=== PATIENT | male | born 1945 | race Caucasian/White ===

== ENCOUNTER → 2016-10-05 | Outpatient (CLI) | payer OTHER | LOC: CAT 11:03 | DX: J43.9 Emphysema, unspecified (principal); N20.0 Calculus of kidney; N28.1 Cyst of kidney, acquired; R91.1 Solitary pulmonary nodule ==

== ENCOUNTER 2017-02-26 17:58 | Inpatient (IN) | payer OTHER ==
[~2017-02-26] VITALS: Ht 180.3 cm; Wt 73.5 kg
--- NOTE | ~2017-02-26 | HC ---
[facility] [place] [address] CONSULTATION Name: GE HAWTHORNE Room #: 356-P [facility] IN M.R.#: [id number] Admission: 02/26/17 Attend Phys: Alexey Murcia DO Discharge: 03/01/17 Date of : 47 Report #: [id number] THIS REPORT FOR: //name// CC: DAVID physician/PCP Alexey Murcia DATE OF SERVICE: 02/26/2017 HISTORY OF PRESENT ILLNESS: This is a 71-year-old male patient who was evaluated by me for the weakness of the right lower extremity. It started 3 days ago. It fluctuated some, but now for more than 24 hours, he is paralyzed in the right lower extremity. He does have some deficit in the right upper extremity also. The weakness is severe. It came spontaneously without any trauma and there is no aggravating or relieving factors for this. REVIEW OF SYSTEMS: Indicate he is a smoker and he has COPD. He follows up with Pulmonary for that. He was able to carry out the activities of daily living but only with a lot of effort. He does not believe that he has any anxiety. He did have some lower back pain but I do not know whether that has any relationship to the patient's symptoms. He denies any eye, ENT, cardiac, respiratory, GI, , constitutional, dermatological, hematological, psychiatric, throat and allergic symptom associated with present symptomatology. He did have some burn in the left leg. PAST MEDICAL HISTORY: Negative for stroke, the best I can understand. FAMILY HISTORY: Negative for early age stroke. SOCIAL HISTORY: He smokes, but he states he does not drink any alcohol. PHYSICAL EXAMINATION: NEUROLOGICAL: Indicate that he is alert, responsive, able to follow simple and complex command. His speech, concentration, fund of knowledge and memory is at his baseline. His cranial nerve examination 2 through 12 is unremarkable. He is weaker in the right hand as compared to the left hand but right leg, he does not move at all. His reflexes look symmetrical. His tone looks symmetrical. He is able to appreciate the position sense on both sides. I do not think he has much cerebellar signs. NECK: There is no carotid bruit or papilledema. He has no thyroid mass or any carotid bruit. GENERAL: He is a well-developed individual who does not have any dysmorphic features of eyes, ears and face. HEENT: His hearing and vision looks adequate. EXTREMITIES: He has no edema, cyanosis or jaundice. His pulses are palpable. CARDIAC: Examination shows normal heart sounds and he has no murmur [place] [address] CONSULTATION Name: GE HATWHORNE Room #: 356-P [facility] IN M.R.#: [id number] Admission: 02/26/17 Attend Phys: Alexey Murcia DO Discharge: 03/01/17 Date of : 47 Report #: [id number] LUNGS: No respiratory difficulty or rhonchi were noticed. VITAL SIGNS: His blood pressure is 142/82, respirations 17, pulse is 74 and temperature is 97.7. LABORATORY DATA: His white count was normal. He did have a CT scan of the head, which was unremarkable and does not look like it showed any CVA. IMPRESSION: It is a pretty unusual symptom but this patient's symptoms can be consistent with anterior cerebral artery infarct with leg is predominantly affected. Usually some sensory loss is present but that is not present in this patient. He needs further workup, especially with his history of smoking. I suggested an MRI of the brain. If MRI of the brain demonstrated that he has an anterior cerebral artery stroke and I do not believe that we need to do much. If not, then he needs a full spine workup even if the weakness is unilateral. He does have some history of anxiety but he does not feel anxious at the moment according to him. RECOMMENDATIONS: 1. MRI of the brain. 2. If MRI of the brain showed anterior cerebral artery infarct, then we can start treating them. 3. If he does not have any anterior cerebral artery infarct, then I think we need further workup of the spine, all of it was discussed with the patient in great detail and he wants to follow this plan. Thank you very much for this referral and if you have any questions, please feel free to contact me. <ELECTRONICALLY SIGNED> By: Celestino Coleman MD 03/03/17 0731 [id number] Celestino Coleman MD /nt
--- NOTE | ~2017-02-26 | EKG ---
[place] [address] [facility] [place] [address] ELECTROCARDIOGRAM REPORT Name: GE HAWTHORNE Room #: 356-P ADM IN M.R.#: [id number] Admission: 02/26/17 Attend Phys: Alexey Murcia DO Discharge: Date of : 47 Report #: [id number] THIS REPORT FOR: //name// [facility] ED Test Date: 2017-02-26 Test Time: 20:30:40 Pat Name: GE HAWTHORNE Department: Room: 356 Gender: M Independent Film Maker: MZOOK : 1945 Requested By: Narayan Ortega Order Number: [id number] MD: Brodie Garcia Measurements Intervals [place] Rate: 68 P: 70 [place]: 158 QRS: 27 QRSD: 117 T: 52 QT: 404 QTc: 430 Interpretive Statements Sinus rhythm LAD, consider left anterior fascicular block Low voltage, extremity leads No previous ECG available for comparison Electronically Signed On 02-26-2017 23:07:46 HEALTH SCIENCES MANAGER by Brodie Garcia [email or web address] <ELECTRONICALLY SIGNED> By: Brodie Garcia MD 02/26/17 2307 2030 2030 Brodie Garcia MD /[facility]
--- NOTE | ~2017-02-26 | 2DMMODE ---
[facility] [address] [place] [address] 2 D/M-MODE ECHOCARDIOGRAM Name: GE HAWTHORNE Room #: 356-P ADM IN M.R.#: [id number] Admission: 02/26/17 Attend Phys: Alexey Murcia, Discharge: Date of : 47 Date of Service: 03/01/17 1106 Report #: [id number] THIS REPORT FOR: //name// APPROVED REPORT Study performed: 03/01/2017 08:59:08 EXAM: Comprehensive 2D, Doppler, and color-flow Echocardiogram Patient Location: Bedside Room #: 356 Status: routine BSA: 1.93 HR: 74 bpm BP: 148/81 mmHg Other Information Study Quality: Technically Limited Technically limited study due to severe lung disease. Some images and doppler not taken due due to inability to achieve accurate angle and image quality.. Indications COPD CVA/TIA 2D Dimensions LVEF(%): 60.68 (>50%) IVSd: 10.23 (7-11mm) LVOT Diam: 21.11 (18-24mm) LVDd: 45.97 mm PWd: 9.03 (7-11mm) LVDs: 31.10 (25-40mm) Aortic Root: 34.79 mm IVC: 22.00 mm Gaitan's LVEF: 60.68 % Pulmonary Valve PV Peak Caleb.: 0.97 m/s PV Peak Gr.: 3.80 mmHg Tricuspid Valve RAP Estimate: 10.00 mmHg Left Ventricle The left ventricle is normal size. There is normal left ventricular wall thickness. The left ventricular systolic function is normal. The left ventricular ejection fraction is within the normal range. LVEF is 60-65%. This study is not technically sufficient to allow [facility] [address] [place] [address] 2 D/M-MODE ECHOCARDIOGRAM Name: GE HAWTHORNE Room #: 356-P ADM IN .R.#: [id number] Admission: 02/26/17 Attend Phys: Alexey Murcia, Discharge: Date of : 47 Date of Service: 03/01/17 1106 Report #: [id number] evaluation of the LV diastolic function. Right Ventricle The right ventricular systolic function is normal. Aortic Valve The aortic valve appears grossly normal in structure. Mitral Valve The mitral valve is normal in structure. Tricuspid Valve The tricuspid valve is normal in structure. Trace tricuspid regurgitation. Pulmonic Valve Pulmonic valve is not well visualized. Great Vessels The aortic root is normal in size. IVC is dilated and collapses >50% with inspiration. Pericardium There is no pericardial effusion. <Conclusion> The left ventricle is normal size. LVEF is 60-65%. The aortic valve appears grossly normal in structure. The mitral valve is normal in structure. The tricuspid valve is normal in structure. Trace tricuspid regurgitation. Pulmonic valve is not well visualized. There is no pericardial effusion. <ELECTRONICALLY SIGNED> By: Familia Roman MD 03/01/17 1106 1106 1106 Familia Roman MD /INF
--- NOTE | ~2017-02-26 | HC ---
[facility] [place] [address] CONSULTATION Name: GE HAWTHORNE Room #: 356-P [facility] IN M.R.#: [id number] Admission: 02/26/17 Attend Phys: Alexey Murcia DO Discharge: 03/01/17 Date of : 47 Report #: [id number] THIS REPORT FOR: //name// CC: DAVID physician/PCP Alexey Murcia DATE OF SERVICE: 03/01/2017 HISTORY OF PRESENT ILLNESS: The patient is a 71-year-old white male who was admitted with right leg weakness x 3 days and some right arm involvement as well. He noted that he was holding on to sinclair at home and was dragging his right leg. Upon admission, he was noted to have an occluded left internal carotid artery. An MRI reveals a left hemispheric cerebrovascular accident involving left parietal area. He is undergoing further evaluation with a cardiac echocardiogram. He has definite right-sided weakness. He is a right-handed white male. We are seeing him in rehabilitation medicine consultation. PAST MEDICAL HISTORY: Includes COPD with chronic tobacco abuse, 3 packs per day ulcers, TIA 10 years ago, gastric surgery for ulcers, bilateral inguinal hernia repair, anxiety, headache. PAST SURGICAL HISTORY: As noted above. HABITS: Tobacco abuse as noted above. Current every day smoker. Alcohol use is noted in the past. MEDICATIONS: Please see the full medication listing. ALLERGIES: CODEINE AND MORPHINE are listed. SOCIAL HISTORY: Lives in a house with his , split level 7+7 steps in, did not utilize gait aids up until the current event. REVIEW OF SYSTEMS: Did not offer any current complaints of chest pain, shortness of breath or abdominal discomfort. He is excited because he is flexing the right hip, which is new. Denies any focal sensory decrease. Denies any specific swallowing issues. PHYSICAL EXAMINATION: GENERAL: A 71-year-old white male in no obvious distress. He is alert, pleasant, in no obvious distress. VITAL SIGNS: Temperature 98.7, pulse 74, respirations 18, blood pressure 148/81. He is alert. Facies appeared symmetric. HEENT: Appeared to be benign. EXTREMITIES: He has functional range of motion and strength of left upper and [address] [address] CONSULTATION Name: GE HAWTHORNE Room #: 356-P [facility] IN M.R.#: [id number] Admission: 02/26/17 Attend Phys: Alexey Murcia DO Discharge: 03/01/17 Date of : 47 Report #: [id number] left lower extremity without focal weakness. Right upper extremity, some mild decreased strength grade 4+/5. Right lower extremity is much more prominent with right hip flexion a grade 3, but no knee extension. No ankle dorsiflexion or eversion or plantar flexion. Sensory examination was reasonably intact to simultaneous stimulation knee and he does have proprioception of that right large toe. Functionally, he has been min assist with sit to stand and did ambulate 150 feet x 2, max assist with a front-wheeled walker. ASSESSMENT: A 71-year-old white male with the following problem list: 1. 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 2. Left internal carotid artery occlusion. 3. Right hemiparesis, lower extremity greater than upper extremity. 4. History of chronic obstructive pulmonary disease. 5. History of tobacco abuse. PLAN: The patient is a good candidate for an acute in-hospital inpatient rehabilitation stay. OT is to evaluate. Can plan on inpatient rehabilitation transfer when medically cleared. Currently undergoing an echocardiogram. <ELECTRONICALLY SIGNED> By: Haresh Kulkarni MD 03/02/17 1109 0934 1738 Haresh Kulkarni MD /[facility]
[2017-02-26 18:00] VITALS: BP 167/96
[2017-02-26 18:38] LABS: HEMOGLOBIN 15.2 gm/dL (14.0-18.0); MCH 31.3 pg (26.0-34.0); MCHC 33.8 g/dL (28.0-37.0); MCV 92.6 fL (80.0-100.0); RBC 4.87 mil/uL (4.50-6.00); RDW 15.6 % (10.5-14.5); WBC 8.1 thou/uL (4.0-11.0)
[2017-02-26] MEDS ORDERED: VENTOLIN HFA 1818 GM INH (18:42)
[2017-02-26] MEDS ORDERED: BREO ELLIPTA 21 EACH (18:43)
[2017-02-26] MEDS ORDERED: INCRUSE ELLI62.5 MCG IH (18:43)
[2017-02-26] MEDS ORDERED: OMEPRAZOLE 20 M20 M1 PO (18:43)
[2017-02-26] MEDS ORDERED: VALIUM5 MG PO (18:43)
[2017-02-26] MEDS ORDERED: REGLAN 10 MG TA10 MG PO (18:44)
[2017-02-26 18:52] LABS: POTASSIUM 3.8 mmol/L (3.5-5.1)
[2017-02-26 18:58] LABS: ALBUMIN 3.5 g/dL (3.4-5.0); MAGNESIUM 2.1 mg/dL (1.8-2.4); TOTAL BILIRUBIN 0.3 mg/dL (<0.1-1.0); TOTAL PROTEIN 7.2 g/dL (6.4-8.2)
[2017-02-26 19:00] LABS: APTT 30.7 Seconds (24.5-32.8); PROTIME 10.6 Seconds (9.3-11.4)
[2017-02-26 20:35] VITALS: BP 155/72
[2017-02-26 21:05] VITALS: BP 175/80
[2017-02-26 21:15] VITALS: BP 115/74
[2017-02-27 00:26] VITALS: BP 99/43
[2017-02-27 03:40] VITALS: BP 100/72
[2017-02-27 06:40] LABS: ALBUMIN 3.3 g/dL (3.4-5.0); CALCIUM 8.4 mg/dL (8.5-10.1); CREATININE 0.9 mg/dL (0.7-1.3); POTASSIUM 3.7 mmol/L (3.5-5.1); TOTAL BILIRUBIN 0.4 mg/dL (<0.1-1.0); TOTAL PROTEIN 6.9 g/dL (6.4-8.2)
[2017-02-27 08:00] VITALS: BP 156/80
[2017-02-27 09:22] LABS: HEMATOCRIT 44.2 % (42.0-52.0); HEMOGLOBIN 14.9 gm/dL (14.0-18.0); MCH 31.3 pg (26.0-34.0); MCHC 33.8 g/dL (28.0-37.0); MCV 92.7 fL (80.0-100.0); RBC 4.77 mil/uL (4.50-6.00); RDW 15.3 % (10.5-14.5); WBC 8.4 thou/uL (4.0-11.0)
[2017-02-27 09:43] LABS: CHOLESTEROL 176 mg/dL (<200); HDL CHOLESTEROL 25 mg/dL (>40); LDL CHOLESTEROL 128 mg/dL (<100); TRIGLYCERIDE 117 mg/dL (<150); VLDL 23 mg/dL (<40)
[2017-02-27 12:00] VITALS: BP 146/73
[2017-02-27 16:00] VITALS: BP 151/69
[2017-02-27 19:15] VITALS: BP 137/86
[2017-02-28 03:30] VITALS: BP 130/77
[2017-02-28 07:58] VITALS: BP 141/77
[2017-02-28 08:30] VITALS: BP 145/80
[2017-02-28 12:00] VITALS: BP 145/80
[2017-02-28 15:45] VITALS: BP 136/66
[2017-02-28 20:15] VITALS: BP 156/81
[2017-03-01 03:30] VITALS: BP 135/84
[2017-03-01 08:02] VITALS: BP 148/81
[2017-03-01 08:40] VITALS: BP 148/81
[2017-03-01] MEDS ORDERED: ASPIRIN325 PO (09:19)
[2017-03-01] MEDS ORDERED: ATORVASTATIN CA40 MG PO (09:19)
[2017-03-01 12:15] VITALS: BP 148/72
== END 2017-03-01 13:49 | DRG 65 ==
LOC: ER 17:58 → EROBS 19:33 → 3W 19:33 → ENTRNSPT 03-01 13:06 → EDTRNSPTSTS 03-01 13:10 → CMPTRNSPT 03-01 13:34 → 3W 03-01 13:49
PROVIDERS: Emergency Medicine; Hospitalist; Nurse Practitioner Family
DX: I63.9 Cerebral infarction, unspecified (principal); G81.94 Hemiplegia, unspecified affecting left nondominant side; F17.210 Nicotine dependence, cigarettes, uncomplicated; I70.208 Unspecified atherosclerosis of native arteries of extremities, other extremity; J44.9 Chronic obstructive pulmonary disease, unspecified; F41.9 Anxiety disorder, unspecified; I65.22 Occlusion and stenosis of left carotid artery; Z79.899 Other long term (current) drug therapy; Z88.6 Allergy status to analgesic agent; Z79.82 Long term (current) use of aspirin
CPT/HCPCS: 10779

== ENCOUNTER 2017-03-01 11:31 | Inpatient (IN) | payer OTHER ==
[~2017-03-01] VITALS: Ht 182.9 cm; Wt 77.6 kg
--- NOTE | ~2017-03-01 | H ---
[facility] [place] [address] HISTORY AND PHYSICAL Name: GE HAWTHORNE Room #: 510-P ADM IN M.R.#: [id number] Admission: 03/01/17 Attend Phys: Haresh Kulkarni MD Discharge: Date of : 47 Report #: [id number] THIS REPORT FOR: //name// CC: Haresh Kulkarni [facility] physician/PCP DATE OF SERVICE: 03/01/2017 HISTORY OF PRESENT ILLNESS: The patient is a 71-year-old white male originally admitted with right leg weakness for 3 days and some right arm involvement. He was holding on to sinclair at home and was dragging his right leg. Upon original admission, he was noted to have an occluded left internal carotid artery. An MRI revealed a left hemispheric CVA involving the left parietal area. He was noted to have definite right-sided weakness, lower extremity greater than upper extremity. He has been followed by Neurology. He has been cleared and is now admitted for an acute in-hospital inpatient rehabilitation stay. PAST MEDICAL HISTORY: Includes COPD with chronic tobacco abuse 3 packs per day, history of ulcers, TIA 10 years ago, gastric surgery for ulcers, bilateral inguinal hernia repair, anxiety, and headache. PAST SURGICAL HISTORY: As noted above. HABITS: Tobacco use as noted above. Current every day smoker. Alcohol use is noted in the past. MEDICATIONS: Please see the full medication listing. Each of these was individually reconciled and includes vitamins, herbals, and supplements. ALLERGIES: CODEINE AND MORPHINE ARE NOTED. SOCIAL HISTORY: Lives in a house with his , split level 7 plus 7 steps in, did not utilize gait aids up until the current event. REVIEW OF SYSTEMS: No complaints were noted of chest pain, shortness of breath, or abdominal discomfort. He does have a prior history of some chronic back problems. He notes he is now starting to move that right leg, which he was not able to do originally. PHYSICAL EXAMINATION: GENERAL: A 71-year-old white male who was seen earlier, was in no distress. VITAL SIGNS: Last recorded temperature 98.3, pulse 77, respirations 22, blood pressure 136/64. Facies appeared symmetric. HEENT: Appeared to be benign. He appeared to track with his eyes. No obvious visual field neglect. CHEST: Sounded clear to auscultation. [address] [address] HISTORY AND PHYSICAL Name: GE HAWTHORNE Room #: 510-P [facility] IN M.R.#: [id number] Admission: 03/01/17 Attend Phys: Haresh Kulkarni MD Discharge: Date of : 47 Report #: [id number] CARDIOVASCULAR: Regular rate and rhythm. ABDOMEN: Bowel sounds positive, nontender. GENITOURINARY AND RECTAL: Deferred. EXTREMITIES: Functional range of motion and strength of the left upper and left lower extremity without weakness. Right upper extremity has some mild decreased strength of grade 4+/5. Right lower extremity reveals right hip flexion a grade, but no knee extension. No ankle dorsiflexion. No eversion and plantarflexion. I did not recheck another sensory examination as I had evaluated yesterday and he did have reasonably intact simultaneous stimulation examination bilaterally. Functionally, he has been needing assistance as far as contact guard with sit to stand and max assist to try to ambulate with the definite right lower extremity weakness. No focal calf swelling. ASSESSMENT: A 71-year-old right-handed white male with the following problem list: 1. 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 2. Left internal carotid artery occlusion. 3. Right hemiparesis, lower extremity greater than upper extremity. 4. History of chronic obstructive pulmonary disease. 5. History of tobacco abuse. PLAN: The patient is admitted for acute in-hospital inpatient rehabilitation. From a postadmission physician evaluation perspective, there are no relevant changes since the preadmission screening. Please see the above review of prior and current medical and functional conditions and comorbidities. Please see the patient's previous and current functional status. As far as risk of complications, the patient has multiple medical comorbidities as noted above. Initial plan of care involves the interdisciplinary acute inpatient rehabilitation program with the goal of maximizing the patient's functional independence, so that he can hopefully return back to his prior living situation. Measurable functional goals would be for the patient to become modified independent with transfers, mobility and ADLs, so that he can return back to the home setting. We will have speech therapy evaluate cognition and visual perception as well. Prognosis is reasonably good with estimated length of stay probably at least 10 days to 2 weeks and likely longer as warranted. Potential barriers would include his decreased functional status and his multiple medical comorbidities. <ELECTRONICALLY SIGNED> By: Haresh Kulkarni MD 03/02/17 1109 0917 0934 Haresh Kulkarni MD /[facility]
--- NOTE | ~2017-03-01 | HC ---
[facility] [place] [address] CONSULTATION Name: GE HAWTHORNE Room #: 510-P [facility] IN M.R.#: [id number] Admission: 03/01/17 Attend Phys: Haresh Kulkarni MD Discharge: Date of : 47 Report #: [id number] THIS REPORT FOR: //name// CC: Haresh Kulkarni [facility] physician/PCP DATE OF SERVICE: 03/06/2017 ATTENDING PHYSICIAN: Haresh Kulkarni MD MOLD CARPENTER: Emmanuel uLa, PhD CLINICAL PRESENTATION: The patient is a 71-year-old male admitted to the [facility] rehabilitation unit for a comprehensive inpatient rehabilitation program to improve functional mobility, activities of daily living and self-care and mental status secondary to cerebrovascular accident. He reports having been at home when he noticed his right leg being weak and his arm having limited movement. At the time of admission through the Emergency Room, he was noted to have an occluded left internal carotid artery and left hemispheric CVA involving the left parietal area. The patient carries diagnoses that includes COPD with chronic tobacco abuse of 3 packs per day, ulcers, TIA 10 years ago, gastric surgery for ulcers, bilateral inguinal hernia repair, anxiety and headache. A complete description of his medical condition and history can be found in his medical records. Neuropsychological consultation was requested to provide assistance in the assessment of cognitive and emotional status and to provide recommendations and services. Prior to this most recent medical event, he was living independently with his . He was driving and independent with instrumental activities of daily living. The patient is a retired it systems manager. He is a high school graduate with two children. One stepdaughter committed suicide several years ago. He is estranged from his 2 remaining children. A remote history of alcohol abuse is described. TECHNIQUES UTILIZED: Clinical interview, review of medical records, staff consultation and behavioral observation, mini-mental status exam 2 standard version, clock drawing and category fluency assessment. EXAMINATION FINDINGS: The patient was alert and cooperative with the assessment. He accurately described the reason for his hospitalization. There is no evidence of aphasia. His thoughts are logical and goal oriented. There is no evidence of thought disorder. He does not report auditory or visual hallucinations. Thought content is appropriate with additional concerns in regard to family conflict. He has been estranged from both children for [facility] [address] [place] [address] CONSULTATION Name: GE HAWTHORNE Room #: 510-P [facility] IN M.R.#: [id number] Admission: 03/01/17 Attend Phys: Haresh Kulkarni MD Discharge: Date of : 47 Report #: [id number] several years. Intermittent conflict with his is also reported. He reports symptoms to include sleep disturbance and decreased appetite. He does not report difficulty with depression, anxiety, word finding, memory or energy level. His performance on the MMSE 2 brief version is within normal limits with a raw score of 15 of 16. The patient was 3 of 3 for initial registration, 5 of 5 for orientation to time and place. He was 2 of 3 for immediate recall of 3 items after a brief time delay and distraction. His performance on the MMSE 2 standard version is within normal limits with a raw score of 26 of 30. He was 2 of 5 for serial 7s, 2 of 2 for naming, 1 of 1 for repetition, 1 of 1 for being able to read and follow a simple sentence, writing and being able to copy a simple geometric design. The patient scored in the mild range of impairment on the category fluency test with a raw score of 28 and T score of 36 which is at the 8th percentile. Perseveration was noted in category fluency. The patient is presenting with deficits primarily in attention and sustained concentration and verbal fluency. Deficits in those 2 cognitive domains typically are associated with executive dysfunction. 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 Unspecified anxiety disorder. Tobacco abuse disorder. RECOMMENDATIONS: The patient would benefit from the use of a smoking cessation program that includes relaxation techniques and breathing strategies for the management of anxiety. Individual counseling is indicated following discharege to assist with smoking cessation and to help improve the relationship with his and children. Compensatory strategies should focus on sustained concentration and thought organization. Thank you very much for allowing me to provide the consultation on this patient. <ELECTRONICALLY SIGNED> By: Emmanuel Lua, PhD 03/07/17 [phone] Emmanuel Lua, PhD /nt
--- NOTE | ~2017-03-01 | PLAN ---
[facility] [place] [address] REHAB UNIT PLAN OF CARE Name: GE HAWTHORNE Room #: 510-P ADM IN M.R.#: [id number] Admission: 03/01/17 Attend Phys: Haresh Kulkarni MD Discharge: Date of : 47 Report #: [id number] THIS REPORT FOR: //name// CC: Haresh Kulkarni [facility] physician/PCP DATE OF SERVICE: 03/03/2017 PROGRESS NOTE/OVERALL PLAN OF CARE The patient was seen back in followup. He is in no distress. Last recorded temperature is 36.9, pulse 73, respirations 20, and blood pressure 127/63. He has been working in therapies. No focal neurologic changes. Still has considerable right lower extremity weakness. I originally thought he could flex the right hip, but I think he is using some of his abdominal support musculature rather than actual hip flexion musculature. There is no knee extension and no eversion or plantar flexion. Functionally, he is min assist with sit to stand, bed to chair is mod assist. He has been able to ambulate up to 50 feet mod assist with a front-wheeled walker. In occupational therapy, upper body dressing is supervision, lower body dressing is mod assist. In speech therapy, he does have mild comprehensive deficits. ASSESSMENT: 1. 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 2. Left internal carotid artery occlusion. 3. Right hemiparesis, lower extremity greater than upper extremity. 4. History of chronic obstructive pulmonary disease. 5. History of tobacco abuse. PLAN: The overall plan of care is based on the preadmission screen, post-admission physician evaluation and information garnered from therapy assessments. 1. Estimated length of stay is probably at least 10 days to 2 weeks and likely longer. 2. Medical prognosis is reasonably good. 3. Anticipated interventions include the interdisciplinary acute inpatient rehabilitation program with the goal of maximizing the patient's functional independence, so that he can hopefully return back to his home setting. PT and OT, speech therapy, nursing assisting regarding medication management, skin care prophylaxis, bowel and bladder issues and nursing education. The national sales consultant physicians will continue to follow as well as the interdisciplinary rehabilitation team. Goal is to return back to his home setting. 4. Anticipated functional outcomes would be for him to become at least modified independent at the walker level for mobility and ADLs and to show improved cognition. 5. Discharge destination would be back home with his . He does have a [facility] [address] [place] [address] REHAB UNIT PLAN OF CARE Name: GE HAWTHORNE Room #: 510-P ADM IN .R.#: [id number] Admission: 03/01/17 Attend Phys: Haresh Kulkarni MD Discharge: Date of : 47 Report #: [id number] split level with a number of steps. 6. Expected therapy by discipline includes PT, OT, and speech 1 hour per day each five days a week throughout the duration of the acute inpatient rehabilitation stay. We may be able to decrease some of the speech therapy in favor of more PT and OT depending upon how he does. <ELECTRONICALLY SIGNED> By: Haresh Kulkarni MD 03/04/17 1442 0816 1145 Haresh Kulkarni MD /PMT
[~2017-03-01 11:31] MED LIST: ASPIRIN325 PO; ATORVASTATIN CA40 MG PO; BREO ELLIPTA 21 EACH; INCRUSE ELLI62.5 MCG IH; OMEPRAZOLE 20 M20 M1 PO; REGLAN 10 MG TA10 MG PO; VALIUM5 MG PO; VENTOLIN HFA 1818 GM INH
[2017-03-01 13:25] VITALS: BP 139/77
[2017-03-01 20:00] VITALS: BP 136/64
[2017-03-02 05:01] LABS: HEMATOCRIT 43.7 % (42.0-52.0); HEMOGLOBIN 14.7 gm/dL (14.0-18.0); MCH 31.3 pg (26.0-34.0); MCHC 33.7 g/dL (28.0-37.0); MCV 92.7 fL (80.0-100.0); RBC 4.72 mil/uL (4.50-6.00); WBC 10.8 thou/uL (4.0-11.0)
[2017-03-02 05:09] LABS: CALCIUM 8.9 mg/dL (8.5-10.1); CREATININE 0.9 mg/dL (0.7-1.3)
[2017-03-02 07:15] VITALS: BP 138/70
[2017-03-02 19:28] VITALS: BP 125/64
[2017-03-03 06:42] VITALS: BP 127/63
[2017-03-03 19:10] VITALS: BP 78/54
[2017-03-04 08:30] VITALS: BP 121/70
[2017-03-04 12:42] VITALS: BP 131/76
[2017-03-04 19:22] VITALS: BP 112/68
[2017-03-05 07:58] VITALS: BP 109/73
[2017-03-05 20:17] VITALS: BP 125/67
[2017-03-06 08:35] VITALS: BP 110/55
[2017-03-07 10:13] VITALS: BP 113/69
[2017-03-07 20:13] VITALS: BP 115/55
[2017-03-08 07:15] VITALS: BP 113/65
[2017-03-08 19:40] VITALS: BP 111/61
[2017-03-09 04:50] LABS: ABSOLUTE NEUTROPHILS 6.4 thou/uL (1.4-8.2); BASOPHILS 0.5 % (0.0-2.0); EOSINOPHILS 3.7 % (0.0-3.0); HEMATOCRIT 40.2 % (42.0-52.0); HEMOGLOBIN 13.4 gm/dL (14.0-18.0); LYMPHOCYTES 18.7 % (24.0-44.0); MCHC 33.2 g/dL (28.0-37.0); MCV 93.5 fL (80.0-100.0); MONOCYTES 7.1 % (1.0-8.0); PLATELET COUNT 419 thou/uL (150-400); RBC 4.31 mil/uL (4.50-6.00); RDW 15.2 % (10.5-14.5); WBC 9.2 thou/uL (4.0-11.0)
[2017-03-09 05:01] LABS: CALCIUM 8.8 mg/dL (8.5-10.1); CREATININE 0.9 mg/dL (0.7-1.3); MAGNESIUM 2.2 mg/dL (1.8-2.4); POTASSIUM 4.4 mmol/L (3.5-5.1)
[2017-03-09 08:00] VITALS: BP 109/58
[2017-03-09 19:00] VITALS: BP 127/74
[2017-03-10 08:00] VITALS: BP 119/68
[2017-03-10 19:00] VITALS: BP 114/64
[2017-03-11 08:00] VITALS: BP 107/63
[2017-03-11 19:00] VITALS: BP 97/51
[2017-03-12 08:00] VITALS: BP 110/61
[2017-03-12 20:11] VITALS: BP 112/69
[2017-03-13 07:15] VITALS: BP 102/53
[2017-03-13 17:45] VITALS: BP 93/62
[2017-03-13 19:26] VITALS: BP 111/63
[2017-03-14 07:15] VITALS: BP 98/64
[2017-03-14 20:47] VITALS: BP 97/62
[2017-03-15 05:12] LABS: ABSOLUTE NEUTROPHILS 8.5 thou/uL (1.4-8.2); BASOPHILS 0.4 % (0.0-2.0); EOSINOPHILS 1.6 % (0.0-3.0); HEMATOCRIT 38.8 % (42.0-52.0); HEMOGLOBIN 12.8 gm/dL (14.0-18.0); LYMPHOCYTES 13.9 % (24.0-44.0); MCH 30.5 pg (26.0-34.0); MCHC 33.1 g/dL (28.0-37.0); MCV 92.1 fL (80.0-100.0); MONOCYTES 7.1 % (1.0-8.0); PLATELET COUNT 506 thou/uL (150-400); RBC 4.21 mil/uL (4.50-6.00); RDW 14.7 % (10.5-14.5); WBC 11.1 thou/uL (4.0-11.0)
[2017-03-15 05:30] LABS: CALCIUM 8.6 mg/dL (8.5-10.1); POTASSIUM 4.2 mmol/L (3.5-5.1)
[2017-03-15 08:16] VITALS: BP 101/55
[2017-03-15 19:10] VITALS: BP 114/50
[2017-03-16 08:00] VITALS: BP 115/61
[2017-03-16 08:30] VITALS: BP 123/62
[2017-03-16] MEDS ORDERED: OMEPRAZOLE 20 M20 M1 PO (09:54)
[2017-03-16] MEDS ORDERED: TYLENOL325 MG PO (09:54)
[2017-03-16] MEDS ORDERED: VOLTAREN GEL 1100 G2 TOP (09:54)
[2017-03-16] MEDS ORDERED: ATORVASTATIN CA40 MG PO (09:54)
[2017-03-16] MEDS ORDERED: VITAMIN B-12500 MCG PO (09:54)
[2017-03-16] MEDS ORDERED: ZANAFLEX2 MG PO (09:54)
[2017-03-16] MEDS ORDERED: ULTRAM 50MG TAB50 MG PO (09:55)
[2017-03-16 15:09] VITALS: BP 123/62
[2017-03-16 19:05] VITALS: BP 99/58
[2017-03-17 07:00] VITALS: BP 100/52
[2017-03-17] MEDS ORDERED: ZANAFLEX2 MG PO (10:04)
[2017-03-17 11:48] VITALS: BP 123/62
[2017-03-17 13:31] VITALS: BP 123/62
== END 2017-03-17 15:50 | disposition home health service (06) | DRG 65 ==
LOC: ENTRNSPT 03-17 15:40 → EDTRNSPTSTS 03-17 15:42
PROVIDERS: Nurse Practitioner; Physical Medicine & Rehabilitation
DX: I63.9 Cerebral infarction, unspecified (principal); G81.91 Hemiplegia, unspecified affecting right dominant side; I65.22 Occlusion and stenosis of left carotid artery; J44.9 Chronic obstructive pulmonary disease, unspecified; F17.210 Nicotine dependence, cigarettes, uncomplicated; F41.9 Anxiety disorder, unspecified; G31.84 Mild cognitive impairment of uncertain or unknown etiology; M54.9 Dorsalgia, unspecified; M25.519 Pain in unspecified shoulder; G47.00 Insomnia, unspecified; Z86.73 Personal history of transient ischemic attack (TIA), and cerebral infarction without residual deficits; Z71.6 Tobacco abuse counseling; Z88.6 Allergy status to analgesic agent; Z79.82 Long term (current) use of aspirin; Z79.899 Other long term (current) drug therapy
CPT/HCPCS: 10112

== ENCOUNTER → 2017-05-03 | Outpatient (CLI) | payer OTHER ==
[~2017-05-03] MED LIST changes: +TYLENOL325 MG PO; +ULTRAM 50MG TAB50 MG PO; +VITAMIN B-12500 MCG PO; +VOLTAREN GEL 1100 G2 TOP; +ZANAFLEX2 MG PO
== END ==
LOC: CAT 10:56
DX: J44.9 Chronic obstructive pulmonary disease, unspecified (principal); R91.1 Solitary pulmonary nodule

== ENCOUNTER 2019-06-25 08:12 | Emergency (ER) | payer OTHER ==
[~2019-06-25] VITALS: Ht 182.9 cm; Wt 68.5 kg
[2019-06-25 09:39] VITALS: BP 103/67
== END 2019-06-25 09:39 | disposition home or self-care (01) ==
LOC: ER 08:12
DX: G51.0 Bell's palsy (principal); B00.52 Herpesviral keratitis; J44.9 Chronic obstructive pulmonary disease, unspecified; F41.9 Anxiety disorder, unspecified; F17.210 Nicotine dependence, cigarettes, uncomplicated; Z98.890 Other specified postprocedural states; Z79.82 Long term (current) use of aspirin; Z79.899 Other long term (current) drug therapy; Z88.5 Allergy status to narcotic agent; Z86.73 Personal history of transient ischemic attack (TIA), and cerebral infarction without residual deficits

== ENCOUNTER 2019-08-20 10:29 | Emergency (ER) | payer OTHER ==
[~2019-08-20] VITALS: Ht 180.3 cm; Wt 65.3 kg
[2019-08-20 11:38] LABS: ABSOLUTE NEUTROPHILS 5.9 thou/uL (1.4-8.2); BASOPHILS 0.4 % (0.0-2.0); EOSINOPHILS 0.6 % (0.0-3.0); HEMATOCRIT 44.6 % (42.0-52.0); LYMPHOCYTES 17.9 % (24.0-44.0); MCHC 33.7 g/dL (28.0-37.0); MONOCYTES 6.8 % (1.0-8.0); PLATELET COUNT 285 thou/uL (150-400); POLYS 74.3 % (36.0-66.0); RBC 4.56 mil/uL (4.50-6.00); RDW 15.6 % (10.5-14.5)
[2019-08-20 11:49] LABS: ANION GAP 5 mmol/L (7-16); BUN 23 mg/dL (7-18); CALCIUM 8.6 mg/dL (8.5-10.1); CHLORIDE 100 mmol/L (98-107); CO2 32 mmol/L (21-32); GLUCOSE 106 mg/dL (74-106); SODIUM 137 mmol/L (136-145)
[2019-08-20 11:58] LABS: TROPONIN-I <0.06 ng/mL (<0.06)
[2019-08-20 16:22] LABS: PROTIME 10.2 Seconds (9.3-11.4)
[2019-08-20 21:00] VITALS: BP 136/58
--- NOTE | 2019-08-21 08:53 | EKG ---
[facility] [place] [address] ELECTROCARDIOGRAM REPORT Name: GE HAWTHORNE Room #: DEP [facility].#: [id number] Admission: 08/20/19 Attend Phys: Discharge: 08/20/19 Date of : 47 Report #: [id number] THIS REPORT FOR: cc: DAVID - Vanessa family physician/PCP DAVID - Vanessa family physician/PCP Diego Dinero MD [facility] THIS REPORT FOR: //name// [facility] ED Test Date: 2019-08-20 Test Time: 12:17:26 Pat Name: GE HAWTHORNE Department: Room: Gender: Enrolled Agent: [facility] : 1945 Requested By: Ata Lamb Order Number: [id number] MD: Diego Dinero Measurements Intervals [place] Rate: 72 P: 78 MA: 150 QRS: 255 QRSD: 99 T: 63 QT: 395 QTc: 433 Interpretive Statements Sinus rhythm Consider RVH Low voltage, extremity leads RSR' in V1 or V2, right VCD Small inferior Q waves Compared to ECG 02/26/2017 20:30:40 No significant change was found Electronically Signed On 08-21-2019 8:52:54 CDT by Diego Dinero [email or web address] <ELECTRONICALLY SIGNED> By: Diego Dinero MD, [facility] 08/21/19 0852 1217 1217 Diego Dinero MD, [facility] /EPI
== END 2019-08-20 21:12 | disposition short-term general hospital (02) ==
LOC: ER 10:29
PROVIDERS: Emergency Medicine
DX: I70.201 Unspecified atherosclerosis of native arteries of extremities, right leg (principal); J44.1 Chronic obstructive pulmonary disease with (acute) exacerbation; F17.210 Nicotine dependence, cigarettes, uncomplicated; Z79.82 Long term (current) use of aspirin; Z79.899 Other long term (current) drug therapy; Z88.5 Allergy status to narcotic agent

== ENCOUNTER → 2020-05-14 | Outpatient (CLI) | payer OTHER | LOC: CAT 11:39 | PROVIDERS: ATTEND Pediatrics | DX: J44.9 Chronic obstructive pulmonary disease, unspecified (principal); I70.0 Atherosclerosis of aorta; M25.78 Osteophyte, vertebrae ==

== ENCOUNTER → 2020-05-14 | Outpatient (CLI) | payer OTHER | LOC: RAD 09:51 | PROVIDERS: ATTEND Pediatrics | DX: J43.9 Emphysema, unspecified (principal) ==